=== PATIENT | female | born 1950 | race Caucasian/White ===

== ENCOUNTER → 2018-01-15 | Outpatient (CLI) | payer MEDICARE, OTHER | LOC: M.RAD 15:37 | DX: M79.671 Pain in right foot (principal) ==

== ENCOUNTER → 2019-01-21 | Outpatient (CLI) | payer MEDICARE, OTHER | LOC: M.RAD 14:02 | DX: M51.34 Other intervertebral disc degeneration, thoracic region (principal); M50.322 Other cervical disc degeneration at C5-C6 level; R07.9 Chest pain, unspecified ==

== ENCOUNTER → 2019-05-12 | Outpatient (CLI) | payer MEDICARE, OTHER | LOC: M.RAD 15:32 | DX: M79.671 Pain in right foot (principal) ==

== ENCOUNTER → 2019-09-01 | Outpatient (CLI) | payer MEDICARE, OTHER | LOC: M.RAD 15:02 | DX: M85.842 Other specified disorders of bone density and structure, left hand (principal); M85.88 Other specified disorders of bone density and structure, other site; W19.XXXA Unspecified fall, initial encounter ==

== ENCOUNTER 2020-04-21 21:42 | Inpatient (IN) | payer MEDICARE, OTHER ==
[~2020-04-21] VITALS: Ht 160 cm; Wt 61.9 kg
--- NOTE | ~2020-04-21 | OP ---
[address] [address] OPERATIVE REPORT Name: ANATOLY ALMODOVAR Room: [address] IN .R.#: [id number] Admission: 04/21/20 Attend Phys: Chrery Horvath MD Discharge: Date of : 52 Report #: [id number] THIS REPORT FOR: //name// cc: OSMAN - Kerrie family physician/PCP OSMAN - Kerrie family physician/PCP ~ CC: [facility] physician/PCP Cherry Horvath DICTATED BY: Bob Knight DO DATE OF SERVICE: 04/22/2020 PREOPERATIVE DIAGNOSIS: Left, closed, displaced intertrochanteric hip fracture. POSTOPERATIVE DIAGNOSIS: Left, closed, displaced intertrochanteric hip fracture. PROCEDURE PERFORMED: Surgical fixation of left hip fracture with cephalomedullary nail. SURGEON: Dr. Oswaldo Napoles. CARD FILER: Bob Knight DO and Veto Owens DO ORTHOPEDIC IMPLANTS: Tory cephalomedullary nail 10 x 170 mm with 125-degree neck angle and appropriately sized lag and distal interlock screws. ANESTHESIA: General. ESTIMATED BLOOD LOSS: 50 mL. DRAINS: None. SPECIMENS: None. COMPLICATIONS: None. CONDITION: The patient is stable. DISPOSITION: PACU and then to Med/Surg floor. ANTIBIOTICS: 2 grams Ancef IV piggyback prior to procedure. OPERATIVE FINDINGS: Intraoperative fluoroscopic images did demonstrate a left displaced intertrochanteric hip fracture, stable. [address] [place] [address] OPERATIVE REPORT Name: ANATOLY ALMODOVAR Room: [address] IN .R.#: [id number] Admission: 04/21/20 Attend Phys: Cherry Horvath MD Discharge: Date of : 52 Report #: [id number] INDICATIONS FOR PROCEDURE: The patient is a 69-year-old female who unfortunately sustained an injury to her left hip. She was admitted overnight for further orthopedic care. She was evaluated by primary medicine service as well as editor magazine this morning and was deemed to be cleared for surgery. Prior to the surgery discussed with the patient all risks, benefits, complications, indications of undergoing a left cephalomedullary nail surgery including the possible risks that include but are not limited to infection, wound healing complications, neurovascular injury, bleeding, need for repeat surgery, hardware failure, malunion, nonunion, DVT, PE, end-organ damage, complication of anesthesia and other possibilities. The patient demonstrated good understanding and wanted to proceed with surgery. DESCRIPTION OF PROCEDURE: I met with the patient in the preoperative suite and the left hip was marked. The patient was taken to the operating room and placed supine on the [place] fracture table. She was given general anesthetic. The left lower extremity was positioned in the boots draped in the standard fashion and the right lower extremity was positioned in a well leg mendoza. At this point, the left lower extremity was sterilely prepped and draped in standard fashion. A surgical timeout was completed, indicating the correct patient, operative site and procedure to be performed. All in the room were in agreement and would like to proceed. Utilizing intraoperative fluoroscopy the proximal incision was marked out based off the greater trochanter. Skin was incised with a 10 blade and dissection was carried down through the IT band down to the level of the greater trochanteric prominence. At this point, a guidewire was positioned using fluoroscopy and malleted into place and positioned down the shaft in standard fashion. Opening reamer was then utilized. Next, the 10 x 170 mm Tory nail was passed on the back table and loaded on the aiming arm and this was passed down the femur. Utilizing a double sleeve guide as well as intraoperative fluoroscopy to confirm lag screw placed. Skin was incised. A guide was placed down to bone and guidewire was placed. A 90-mm lag screw was then selected and reamed and then positioned in the standard fashion. Added some compression through the aiming arm across the fracture site and then the proximal setscrew was tightened into position. Next we turned our attention to the distal interlocked screw. The triple sleeve was utilized and the skin was incised and the triple sleeve was positioned to the lateral cortex of the femur. This was drilled and measured in the standard fashion. A 35 mm distal interlock screw was then placed in the standard fashion with a good stable bite. Next, the aiming arm was removed and final intraoperative fluoroscopic images were taken, these demonstrated adequate fixation and appropriate hardware alignment. The wound was thoroughly irrigated with saline. Closed deep fascia with an 0 Vicryl in a [id number] fashion and then 2-0 Monocryl was used subcuticularly and 2-0 Vicryl was used subcutaneously in a simple fashion. Skin was closed with skin bert. Dressings consisted of a Mepilex silver dressing. Needle and sponge counts correct x2 at the end [place] procedure. [place] [address] OPERATIVE REPORT Name: ANATOLY ALMODOVAR Room: [address] IN .R.#: [id number] Admission: 04/21/20 Attend Phys: Cherry Horvath MD Discharge: Date of : 52 Report #: [id number] taken out of anesthesia and placed supine back on her regular bed. The patient was transferred to PACU in stable condition. Dr. Oswaldo Napoles was present throughout the entirety of the case. By: 1208 [id number] Napoles, DO /nt
[2020-04-21 21:45] VITALS: BP 148/73
[2020-04-21] MEDS ORDERED: ELMIRON 100 MG100 M1 PO (21:49)
[2020-04-21] MEDS ORDERED: OXYBUTYNIN 5 MG5 M2 PO (21:50)
[2020-04-21] MEDS ORDERED: ZOLOFT100 MG PO (21:51)
[2020-04-21] MEDS ORDERED: ATARAX PO (21:51)
[2020-04-21] MEDS ORDERED: DESYREL150 MG PO (21:51)
[2020-04-21] MEDS ORDERED: WELLBUTRIN SR200 MG PO (21:52)
[2020-04-21 22:19] LABS: ABSOLUTE BASOPHILS 0.1 thou/uL (0.0-0.2); ABSOLUTE EOSINOPHILS 0.1 thou/uL (0.0-0.7); ABSOLUTE LYMPHOCYTES 1.6 thou/uL (0.8-5.3); ABSOLUTE MONOCYTES 0.9 thou/uL (0.0-1.2); BASOPHILS 0.9 %; EOSINOPHILS 1.1 %; HEMATOCRIT 32.8 % (37.0-47.0); HEMOGLOBIN 11.5 gm/dL (12.0-15.0); MCH 32.4 pg (26.0-34.0); MCHC 35.1 g/dL (28.0-37.0); MCV 92.4 fL (80.0-100.0); MONOCYTES 8.3 %; MPV 9.2 fl. (7.2-11.1); NUCLEATED RBCS 0 /100WBC; PLATELET COUNT* 269 thou/uL (150-400); POLYS 74.7 %; RBC 3.55 mil/uL (4.20-5.00); RDW-CV 13.5 % (10.5-14.5); WBC 10.6 thou/uL (4.0-11.0)
[2020-04-21 22:24] LABS: CALCIUM 8.4 mg/dL (8.5-10.1); CREATININE 1.2 mg/dL (0.6-1.3); POTASSIUM 3.9 mmol/L (3.5-5.1)
[2020-04-21 22:26] LABS: APTT 40.2 Seconds (25.0-31.3); PROTIME 10.7 Seconds (9.20-11.50)
[2020-04-21 22:29] LABS: ALBUMIN 3.2 g/dL (3.4-5.0); TOTAL BILIRUBIN 0.2 mg/dL (<0.1-1.0); TOTAL PROTEIN 6.9 g/dL (6.4-8.2)
[2020-04-22 00:24] VITALS: BP 130/59
[2020-04-22 00:48] VITALS: BP 142/59
[2020-04-22 08:15] VITALS: BP 120/56
--- NOTE | 2020-04-22 10:40 | EKG ---
[place] [address] ELECTROCARDIOGRAM REPORT Name: ANATOLY ALMODOVAR Room: [address] ADM IN .R.#: [id number] Admission: 04/21/20 Attend Phys: Cherry Horvaht, Discharge: Date of : 52 Date of Service: 04/21/20 2216 Report #: [id number] THIS REPORT FOR: //name// [facility] ED Test Date: 2020-04-21 Test Time: 22:16:33 Pat Name: ANATOLY ALMODOVAR Department: Room: [facility] Gender: F [employer] Secretary: PRO : 1950 Requested By: Liliam Howard Order Number: [id number] MD: Abdi Jack Measurements Intervals [place] Rate: 67 P: 85 MO: 168 QRS: 83 QRSD: 102 T: 66 QT: 425 QTc: 449 Interpretive Statements Sinus rhythm Atrial premature complex Borderline right axis deviation Minimal ST depression, anterolateral leads No previous ECG available for comparison Electronically Signed On 04-22-2020 10:39:52 CDT by Abdi Jack [email or web address] <ELECTRONICALLY SIGNED> By: Abdi Jack MD, [facility] 04/22/20 1039 2216 Abdi Jack MD, [facility] /EPI
--- NOTE | 2020-04-22 10:48 | EKG ---
[place] [address] ELECTROCARDIOGRAM REPORT Name: ANATOLY ALMODOVAR Room: [address] ADM IN M.R.#: [id number] Admission: 04/21/20 Attend Phys: Cherry Horvath, Discharge: Date of : 52 Date of Service: 04/22/20 1012 Report #: [id number] THIS REPORT FOR: //name// [facility] Test Date: 2020-04-22 Test Time: 10:12:47 Pat Name: ANATOLY ALMODOVAR Department: Room: [address] Gender: F Joint Cutter: NEMESIO : 1950 Requested By: Campbell Ramos Order Number: [id number] Bonita MD: Abdi Jack Measurements Intervals [place] Rate: 71 P: 77 MO: 157 QRS: 77 QRSD: 92 T: 3 QT: 438 QTc: 476 Interpretive Statements Sinus rhythm Atrial premature complex Minimal ST depression, inferior leads Compared to ECG 04/21/2020 22:16:33 No significant changes Electronically Signed On 04-22-2020 10:48:05 CDT by Abdi Jack [email or web address] <ELECTRONICALLY SIGNED> By: Abdi Jack MD, [facility] 04/22/20 1048 1012 1012 Abdi Jack MD, [facility] /EPI
--- NOTE | 2020-04-22 13:45 | 2DMMODE ---
[place] [address] 2 D/M-MODE ECHOCARDIOGRAM Name: ANATOLY ALMODOVAR Room: [address] IN [facility]#: [id number] Admission: 04/21/20 Attend Phys: Cherry Horvath, Discharge: Date of : 52 Date of Service: 04/22/20 1345 Report #: [id number] THIS REPORT FOR: cc: FAM - No family physician/PCP FAM - No family physician/PCP Chris Finch MD [facility] ~ APPROVED REPORT Study performed: 04/22/2020 09:10:13 EXAM: Comprehensive 2D, Doppler, and color-flow Echocardiogram Patient Location: In-Patient Room #: [facility] Status: routine BSA: 1.64 HR: 72 bpm BP: 142/59 mmHg Rhythm: NSR Other Information Study Quality: Good Indications Abnormal ECG Pre-Op 2D Dimensions IVSd: 6.83 (7-11mm) LVOT Diam: 19.78 (18-24mm) LVDd: 52.23 mm PWd: 7.54 (7-11mm) Ascending Ao: 31.52 (22-36mm) LVDs: 28.95 (25-40mm) Aortic Root: 31.10 mm Volumes Left Atrial Volume (Systole) LA ESV Index: 21.50 mL/m2 Aortic Valve AoV Peak Viraj.: 1.88 m/s AO Peak Gr.: 14.17 mmHg LVOT Max P.99 mmHg AO Mean Gr.: 6.79 mmHg LVOT Mean P.92 mmHg LVOT Max V: 1.87 m/s AO V2 VTI: 36.51 cm LVOT Mean V: 1.09 m/s LORENE (VTI): 3.21 cm2 LVOT V1 VTI: 38.16 [place] [address] 2 D/M-MODE ECHOCARDIOGRAM Name: ANATOLY ALMODOVAR Room: [address] IN .R.#: [id number] Admission: 04/21/20 Attend Phys: Cherry Horvath, Discharge: Date of : 52 Date of Service: 04/22/20 1345 Report #: [id number] AI [place]: 2.65 m/s2 AI PHT: 423.26 ms Mitral Valve E/A Ratio: 0.95 MV Decel. Time: 225.84 ms MV E Max Viraj.: 0.72 m/s MV PHT: 65.49 ms MVA (PHT): 3.36 cm2 TDI E/Lateral E': 4.80 E/Medial E': 4.80 Medial E' Viraj.: 0.15 m/s Lateral E' Viraj.: 0.15 m/s Pulmonary Valve PV Peak Viraj.: 0.99 m/s PV Peak Gr.: 3.94 mmHg Tricuspid Valve RAP Estimate: 5.00 mmHg TR Peak Gr.: 24.87 mmHg RVSP: 29.00 mmHg PA Pressure: 29.00 mmHg Left Ventricle The left ventricle is normal size. There is normal LV segmental wall motion. There is normal left ventricular wall thickness. Left ventricular systolic function is normal. LVEF is 60-65%. The left ventricular diastolic function is normal. Right Ventricle The right ventricle is normal size. The right ventricular systolic function is normal. Atria The left atrium size is normal. The right atrium size is normal. Aortic Valve The aortic valve is normal in structure. Mild to moderate aortic regurgitation. There is no aortic valvular stenosis. Mitral Valve The mitral valve is normal in structure. There is no mitral valve regurgitation noted. No evidence of mitral valve stenosis[place] [address] 2 D/M-MODE ECHOCARDIOGRAM Name: ANATOLY ALMODOVAR Room: [address]#: [id number] Admission: 04/21/20 Attend Phys: Cherry Horvath, Discharge: Date of : 52 Date of Service: 04/22/20 1345 Report #: [id number] The tricuspid valve is normal in structure. Trace tricuspid regurgitation. No pulmonary hypertension. Pulmonic Valve The pulmonary valve is normal in structure. There is no pulmonic valvular regurgitation. Great Vessels The aortic root is normal in size. IVC is normal in size and collapses >50% with inspiration. Pericardium There is no pericardial effusion. <Conclusion> The left ventricle is normal size. There is normal left ventricular wall thickness. Left ventricular systolic function is normal. LVEF is 60-65%. The left ventricular diastolic function is normal. Mild to moderate aortic regurgitation. Trace tricuspid regurgitation. No pulmonary hypertension. IVC is normal in size and collapses >50% with inspiration. <ELECTRONICALLY SIGNED> By: Chris Finch MD, FACC 04/22/20 1345 1345 1345 Chris Finch MD, FACC /INF
--- NOTE | 2020-04-22 14:31 | CON ---
[address] [address] CONSULTATION Name: NISHIANATOLY Lars Room: [address] IN .R.#: [id number] Admission: 04/21/20 Attend Phys: Cherry Horvath MD Discharge: Date of : 52 Report #: [id number] THIS REPORT FOR: //name// cc: OSMAN Sy family physician/PCP OSMAN Sy family physician/PCP ~ THIS REPORT FOR: //name// CC: [facility] physician/PCP Cherry Horvath DATE OF SERVICE: 04/22/2020 INDICATION: Preoperative evaluation. HISTORY OF PRESENT ILLNESS: The patient is a 69-year-old white female who was admitted to the hospital with left hip fracture. A 12-lead EKG showed sinus rhythm with some nonspecific ST segment depression in the anterolateral leads. The patient denies any prior cardiac history. She has not had formal cardiac evaluation. She denies specifically chest pain or shortness of breath. Cardiac risk factors include family history of coronary artery disease, hyperlipidemia, and tobacco use. She does have evidence of atherosclerosis based on the findings of atherosclerosis in the aorta on various CT scans dating back at least 5 years. Evaluation of her various lipid profile shows her to have an elevated LDL cholesterol consistent with hyperlipidemia. PAST MEDICAL HISTORY: 1. Iron-deficiency anemia. 2. Chronic cystitis. 3. Osteopenia. 4. Depression and anxiety. 5. Hypothyroidism. 6. Hysterectomy in 1985. 7. Bladder sling. 8. Lumbar spine surgery. 9. Right knee surgery. CURRENT MEDICATIONS: Elmiron 100 mg b.i.d., oxybutynin 15 mg daily, Zoloft 100 mg b.i.d., trazodone 100 mg at bedtime, buspirone 15 mg q.i.d., and Atarax 10 mg daily. ALLERGIES: LEVOFLOXACIN, SULFAMETHOXAZOLE AND TETANUS TOXOID. SOCIAL HISTORY: The patient reports smoking 3 cigarettes daily. She [place] [address] CONSULTATION Name: ANATOLY ALMODOVAR Lars Room: [address] IN [facility].#: [id number] Admission: 04/21/20 Attend Phys: Cherry Horvath MD Discharge: Date of : 52 Report #: [id number] REVIEW OF SYSTEMS: Fairly unremarkable. The patient has been given morphine for pain control and has a somewhat difficult history at this time. PHYSICAL EXAMINATION: VITAL SIGNS: Blood pressure 142/59, pulse is 74 and regular. GENERAL: This is a pleasant lady in no distress. Mood and affect somewhat blunted with medication, but appears stable. HEENT: Head is normocephalic, atraumatic. Extraocular muscles intact. Mucous membranes are moist. NECK: Shows no jugular venous distention. There are no carotid bruits. CHEST: Reveals clear lung elizalde without wheezes or rales. CARDIOVASCULAR: Reveals a regular rhythm. I do not appreciate gallop or murmur. ABDOMEN: Reveals a soft abdomen with positive bowel sounds. EXTREMITIES: Shows no edema. Peripheral pulses palpable. SKIN: Warm and dry. LABORATORY DATA: A 12-lead EKG shows sinus rhythm with nonspecific ST-segment depression in the anterolateral leads. There are no pathologic Q-waves. Labs are reviewed. Electrolytes within normal limits. BUN 17 and creatinine 1.2. Hemoglobin 11.5 and platelet count 269,000. Troponin is less than 0.06. Bedside echo shows normal LV function without wall motion abnormality. IMPRESSION AND RECOMMENDATIONS: 1. Left hip fracture. The patient is not at prohibitive risk from a cardiac standpoint to proceed with left hip repair. 2. Atherosclerosis based on review of history. The patient should have formal cardiac evaluation in the near future. We would consider outpatient stress testing. 3. Dyslipidemia. Recommend statin agent for LDL cholesterol of 70 or less. 4. Tobacco use. Smoking cessation should be advised. <ELECTRONICALLY SIGNED> By: Chris Finch MD, FACC 04/22/20 1431 0935 0948Chris Finch MD, FACC /nt
[2020-04-22 16:07] VITALS: BP 130/58
[2020-04-22 20:30] VITALS: BP 116/54
[2020-04-23] VITALS: BP 157/53
[2020-04-23 03:20] VITALS: BP 116/59
[2020-04-23 05:23] LABS: ABSOLUTE LYMPHOCYTES 1.6 thou/uL (0.8-5.3); ABSOLUTE NEUTROPHILS 5.1 thou/uL (1.6-8.1); BASOPHILS 0.6 %; EOSINOPHILS 0.1 %; HEMATOCRIT 26.3 % (37.0-47.0); MCH 32.5 pg (26.0-34.0); MCHC 34.6 g/dL (28.0-37.0); MCV 93.8 fL (80.0-100.0); MONOCYTES 13.4 %; MPV 9.9 fl. (7.2-11.1); NUCLEATED RBCS 0 /100WBC; PLATELET COUNT* 196 thou/uL (150-400); POLYS 65.9 %; RDW-CV 13.2 % (10.5-14.5); WBC 7.8 thou/uL (4.0-11.0)
[2020-04-23 05:32] LABS: HEMOGLOBIN 9.1 gm/dL (12.0-15.0)
[2020-04-23 05:33] LABS: ANION GAP 8 mmol/L (7-16); BUN 10 mg/dL (7-18); CALCIUM 7.8 mg/dL (8.5-10.1); CHLORIDE 102 mmol/L (98-107); CO2 27 mmol/L (21-32); GLUCOSE 93 mg/dL (70-99); POTASSIUM 3.5 mmol/L (3.5-5.1); SODIUM 137 mmol/L (136-145)
[2020-04-23 08:10] VITALS: BP 121/50
[2020-04-23 08:39] LABS: CHOLESTEROL 182 mg/dL (<200); HDL CHOLESTEROL 67 mg/dL (>40); LDL CHOLESTEROL 92 mg/dL (<100); TC:HDL 2.7 Ratio (Not establshd); TRIGLYCERIDE 119 mg/dL (<150); VLDL 24 mg/dL (<40)
[2020-04-23 08:41] LABS: SERUM ASSESSMENT Clear
[2020-04-23 16:09] VITALS: BP 124/53
[2020-04-23 20:00] VITALS: BP 141/55
[2020-04-24 08:00] VITALS: BP 136/56
[2020-04-24] MEDS ORDERED: FLEXERIL PO (12:35)
[2020-04-24 17:00] VITALS: BP 154/51
[2020-04-24 19:40] VITALS: BP 140/62
[2020-04-24] MEDS ORDERED: PREMARIN1.25 MG PO (20:59)
[2020-04-24] MEDS ORDERED: LEVO-T75 MCG PO (21:11)
[2020-04-24] MEDS ORDERED: BUSPAR30 MG PO (21:11)
[2020-04-24] MEDS ORDERED: ROBAXIN 750 MG750 MG PO (21:12)
[2020-04-25 00:42] VITALS: BP 134/46
[2020-04-25 06:19] VITALS: BP 122/71
[2020-04-25 07:55] VITALS: BP 119/83
[2020-04-25 15:10] VITALS: BP 144/53
[2020-04-25 20:05] VITALS: BP 157/62
[2020-04-26 08:10] VITALS: BP 142/80
[2020-04-26] MEDS ORDERED: OXYCODONE HCL 55 MG PO (08:20)
[2020-04-26] MEDS ORDERED: ELIQUIS5 MG PO (08:20)
[2020-04-26 12:30] VITALS: BP 171/60
== END 2020-04-26 13:38 | DRG 481 ==
LOC: M.ERS 21:42 → M.ORTHSURG 23:13 → M.TBA-ER 23:13 → M.ORTHSURG 04-22 00:28
PROVIDERS: Personal Emergency Response Attendant; ADMIT Internal Medicine; ATTEND Internal Medicine
PROC: 0QS706Z Reposition Left Upper Femur with Intramedullary Internal Fixation Device, Open Approach (ICD-10-PCS; principal; 2020-04-22)
PROC: 5A09357 Assistance with Respiratory Ventilation, Less than 24 Consecutive Hours, Continuous Positive Airway Pressure (ICD-10-PCS; principal; 2020-04-22)
DX: M80.052A Age-related osteoporosis with current pathological fracture, left femur, initial encounter for fracture (principal); E44.1 Mild protein-calorie malnutrition; F41.9 Anxiety disorder, unspecified; F32.9 Major depressive disorder, single episode, unspecified; E03.9 Hypothyroidism, unspecified; F17.210 Nicotine dependence, cigarettes, uncomplicated; E78.5 Hyperlipidemia, unspecified; R94.31 Abnormal electrocardiogram [ECG] [EKG]; G47.33 Obstructive sleep apnea (adult) (pediatric); G89.29 Other chronic pain; M54.9 Dorsalgia, unspecified; W10.8XXA Fall (on) (from) other stairs and steps, initial encounter; Z20.828 Contact with and (suspected) exposure to other viral communicable diseases; Y93.89 Activity, other specified; Y92.89 Other specified places as the place of occurrence of the external cause; Y99.8 Other external cause status; Z90.710 Acquired absence of both cervix and uterus; Z79.899 Other long term (current) drug therapy; Z88.1 Allergy status to other antibiotic agents; Z88.7 Allergy status to serum and vaccine; Z88.8 Allergy status to other drugs, medicaments and biological substances; Z68.24 Body mass index [BMI] 24.0-24.9, adult

== ENCOUNTER 2020-04-26 12:15 | Inpatient (IN) | payer MEDICARE, OTHER ==
[~2020-04-26] VITALS: Ht 160 cm; Wt 60.4 kg
[~2020-04-26 12:15] MED LIST: ATARAX PO; BUSPAR30 MG PO; DESYREL150 MG PO; ELIQUIS5 MG PO; ELMIRON 100 MG100 M1 PO; FLEXERIL PO; LEVO-T75 MCG PO; OXYBUTYNIN 5 MG5 M2 PO; OXYCODONE HCL 55 MG PO; PREMARIN1.25 MG PO; ROBAXIN 750 MG750 MG PO; WELLBUTRIN SR200 MG PO; ZOLOFT100 MG PO
[2020-04-26 14:00] VITALS: BP 151/54
[2020-04-26 19:30] VITALS: BP 133/63
[2020-04-27 05:58] LABS: HEMATOCRIT 26.6 % (37.0-47.0); HEMOGLOBIN 9.2 gm/dL (12.0-15.0); MCH 32.5 pg (26.0-34.0); MCHC 34.5 g/dL (28.0-37.0); MCV 94.3 fL (80.0-100.0); MPV 9.2 fl. (7.2-11.1); RBC 2.82 mil/uL (4.20-5.00); RDW-CV 13.5 % (10.5-14.5); WBC 6.7 thou/uL (4.0-11.0)
[2020-04-27 06:02] LABS: CALCIUM 8.6 mg/dL (8.5-10.1); CREATININE 0.9 mg/dL (0.6-1.3)
[2020-04-27 08:00] VITALS: BP 125/65
[2020-04-27 19:00] VITALS: BP 159/66
[2020-04-28 07:00] VITALS: BP 119/58
[2020-04-28 19:00] VITALS: BP 153/50
[2020-04-29 07:52] VITALS: BP 131/50
[2020-04-29 20:22] VITALS: BP 146/59
[2020-04-30 08:00] VITALS: BP 137/54
[2020-04-30 20:18] VITALS: BP 133/65
[2020-05-01 08:00] VITALS: BP 136/62
[2020-05-01 20:18] VITALS: BP 163/68
[2020-05-02 08:00] VITALS: BP 137/53
[2020-05-02 19:50] VITALS: BP 189/80
[2020-05-03 07:00] VITALS: BP 140/70
[2020-05-03 19:00] VITALS: BP 156/67
[2020-05-04 09:00] VITALS: BP 126/57
[2020-05-04 19:00] VITALS: BP 143/83
[2020-05-05 07:00] VITALS: BP 116/57
[2020-05-05 20:21] VITALS: BP 145/80
[2020-05-06 08:17] VITALS: BP 139/58
[2020-05-07 08:00] VITALS: BP 122/54
[2020-05-07 20:00] VITALS: BP 138/70
[2020-05-08 07:30] VITALS: BP 126/55
[2020-05-08 19:00] VITALS: BP 169/72
[2020-05-09 08:00] VITALS: BP 144/63
[2020-05-09 19:32] VITALS: BP 141/63
[2020-05-10 07:00] VITALS: BP 136/55
[2020-05-10 11:52] VITALS: BP 136/55
[2020-05-10 13:06] VITALS: BP 136/55
[2020-05-10] MEDS ORDERED: ASA81BEC PO (13:26)
[2020-05-10 14:45] VITALS: BP 136/55
== END 2020-05-10 14:45 | disposition home health service (06) | DRG 536 ==
LOC: M.REH 12:15
PROVIDERS: ADMIT Physical Medicine & Rehabilitation; ATTEND Physical Medicine & Rehabilitation
DX: S72.142A Displaced intertrochanteric fracture of left femur, initial encounter for closed fracture (principal); E44.1 Mild protein-calorie malnutrition; F32.9 Major depressive disorder, single episode, unspecified; F41.9 Anxiety disorder, unspecified; E03.9 Hypothyroidism, unspecified; D64.9 Anemia, unspecified; F17.210 Nicotine dependence, cigarettes, uncomplicated; G47.33 Obstructive sleep apnea (adult) (pediatric); K59.00 Constipation, unspecified; Z90.710 Acquired absence of both cervix and uterus; Z88.1 Allergy status to other antibiotic agents; Z88.2 Allergy status to sulfonamides; Z68.23 Body mass index [BMI] 23.0-23.9, adult

== ENCOUNTER → 2020-06-28 | Outpatient (CLI) | payer MEDICARE, OTHER ==
[~2020-06-28] MED LIST changes: +ASA81BEC PO
--- NOTE | 2020-06-28 14:53 | 2DMMODE ---
[place] [address] 2 D/M-MODE ECHOCARDIOGRAM Name: ANATOLY ALMODOVAR Lars Room: [facility]#: [id number] Admission: 06/28/20 Attend Phys: Chris Finch, Discharge: Date of : 52 Date of Service: 06/28/20 1452 Report #: [id number] THIS REPORT FOR: cc: Everardo Geronimo Meng, Zhao Blick, David R. MD [facility] ~ APPROVED REPORT Study performed: 06/28/2020 13:00:49 EXAM: Comprehensive 2D, Doppler, and color-flow Echocardiogram Patient Location: Out-Patient BSA: 1.62 HR: 66 bpm BP: 142/59 mmHg Other Information Study Quality: Good Indications Aortic Valve Disease 2D Dimensions IVSd: 10.27 (7-11mm) LVOT Diam: 20.43 (18-24mm) LVDd: 48.65 mm PWd: 10.77 (7-11mm) Ascending Ao: 31.11 (22-36mm) LVDs: 26.58 (25-40mm) Aortic Root: 31.45 mm Volumes Left Atrial Volume (Systole) LA ESV Index: 20.10 mL/m2 Aortic Valve AoV Peak Viraj.: 1.38 m/s AO Peak Gr.: 7.56 mmHg LVOT Max P.63 mmHg AO Mean Gr.: 3.51 mmHg LVOT Mean P.20 mmHg LVOT Max V: 1.38 m/s AO V2 VTI: 30.13 cm LVOT Mean V: 0.80 m/s LORENE (VTI): 3.50 cm2 LVOT V1 VTI: 32.18 cm AI [place]: 2.71 m/s2 AI PHT: 400.35 [place] [address] 2 D/M-MODE ECHOCARDIOGRAM Name: ANATOLY ALMODOVAR Room: [facility]#: [id number] Admission: 06/28/20 Attend Phys: Chris Finch, Discharge: Date of : 52 Date of Service: 06/28/20 1452 Report #: [id number] Mitral Valve E/A Ratio: 1.03 MV Decel. Time: 169.90 ms MV E Max Viraj.: 0.59 m/s MV PHT: 49.27 ms MVA (PHT): 4.47 cm2 TDI E/Lateral E': 5.36 E/Medial E': 5.90 Medial E' Viraj.: 0.10 m/s Lateral E' Viraj.: 0.11 m/s Pulmonary Valve PV Peak Viraj.: 0.86 m/s PV Peak Gr.: 2.99 mmHg Tricuspid Valve RAP Estimate: 5.00 mmHg TR Peak Gr.: 14.17 mmHg RVSP: 19.17 mmHg PA Pressure: 19.17 mmHg Left Ventricle The left ventricle is normal size. There is normal LV segmental wall motion. There is normal left ventricular wall thickness. Left ventricular systolic function is normal. The left ventricular ejection fraction is within the normal range. LVEF is 55-60%. The left ventricular diastolic function is normal. Right Ventricle The right ventricle is normal size. The right ventricular systolic function is normal. Atria The left atrium size is normal. The right atrium size is normal. Aortic Valve The aortic valve is normal in structure. Moderate aortic regurgitation. There is no aortic valvular stenosis. Mitral Valve The mitral valve is normal in structure. There is no mitral valve regurgitation noted. No evidence of mitral valve stenosis. Tricuspid Valve The tricuspid valve is normal in structure. Mild [place]icus[place] [address] 2 D/M-MODE ECHOCARDIOGRAM Name: ANATOLY ALMODOVAR Room: [facility]#: [id number] Admission: 06/28/20 Attend Phys: Chris Finch, Discharge: Date of : 52 Date of Service: 06/28/20 1452 Report #: [id number] Pulmonic Valve The pulmonary valve is normal in structure. There is no pulmonic valvular regurgitation. Great Vessels The aortic root is normal in size. IVC is normal in size and collapses >50% with inspiration. Pericardium There is no pericardial effusion. <Conclusion> LVEF is 55-60%. The aortic valve is normal in structure. Moderate aortic regurgitation. <ELECTRONICALLY SIGNED> By: Abdi Jack MD, FACC 06/28/201451 51 51 Abdi Jack MD, FACC /INF
--- NOTE | 2020-06-29 10:09 | CARDNUC ---
[place] [address] CARDIAC NUCLEAR IMAGING REPORT Name: ANATOLY ALMODOVAR Room: [facility]#: [id number] Admission: 06/28/20 Attend Phys: Chris Finch, Discharge: Date of : 52 Date of Service: 06/29/20 1008 Report #: [id number] THIS REPORT FOR: cc: Everardo Geronimo Meng, Zhao Liston, Michael J. MD [facility] ~ APPROVED REPORT Study performed: 06/28/2020 15:57:50 Exam: Nuclear Stress Test Indication: Abnormal EKG, Nonrheumatic Aortic Valve insufficiency. Patient Location: Out-Patient Stress Tech: Diya Whitmore Stress Nurse: Angelic Fraser R.N. Ht: 5 ft 3 in Wt: 131 lbs BSA: 1.62 m2 BMI: 23.20 Medical History Medical History: ABN EKG, Nonrheumatic Aortic Valve Insufficiency, Recent fall, recent hip surgery, back surgery, CAD, past smoker, uses walker to ambulate. Medications: No cardiac medications. Allergies: Bactrim, Levofloxacin, Tetanus toxoids. Cardiac Risk Factors: Age, FHX of CAD, Hyperlipidemia, ABN EKG, Nonrheumatic Aortic Valve insufficiency, past smoker. Previous Cardiac Procedures: None Pretest Chest Pain Characteristics: No chest pain Exercise History: Sedentary Physical Disabilities: s/p hip FX/Surgery, uses walker to ambulate. Meds Held (24 hrs): None Stress Test Details Stress Test: Pharmacologic stress testing performed using 0.4 mg of regadenoson per 5 mL given IV over 10 seconds. Reason for pharmacologic stress test: s/p hip FX/Surgery, uses walker to ambulate.. HR Resting HR: 60 bpm Max Heart Rate (APMHR): 151 bpm Max HR Achieved: 88 bpm Target HR (85% APMHR): 128 bpm % of APMHR: 58 [place] [address] CARDIAC NUCLEAR IMAGING REPORT Name: HONORIOLISAANATOLY L Room: [facility]#: [id number] Admission: 06/28/20 Attend Phys: Chris Finch, Discharge: Date of : 52 Date of Service: 06/29/20 1008 Report #: [id number] Recovery HR: 76 bpm BP Resting BP: 183/74 mmHg Max BP: 172/74 mmHg ECG Resting ECG: Sinus Rhythm, nonspecific ST-T abnormalities Stress ECG: Sinus Rhythm, nonspecific ST-T abnormalities ST Change: None Arrhythmia: None Recovery ECG: Sinus Rhythm, nonspecific ST-T abnormalities Recovery ST Change: None Recovery Arrhythmia: None Clinical Reason for Termination: Completed protocol Stress Symptoms: PAC's, Chest tightness 4/10, stomach discomfort/nausea. Exercise duration: 00 min 00 sec Exercise capacity: 1.00 METs The patient reported chest tightness with Lexiscan infusion. Nurse Comments A 70 year old female presented with her walker for a sitting Lexiscan r/t ABN EKG, Nonrheumatic Aortic Valve insufficiency. Test well tolerated. Recovery unremarkable. Patient was stable and stated she felt good when escorted to Nuclear Medicine for imaging. Stress ECG Conclusion Baseline twelve-lead EKG shows sinus rhythm with 0.[address] segment depression in the inferolateral leads. EKGs obtained during and post Lexiscan infusion showed sinus rhythm with no significant ST segment changes when compared to baseline. There were no stress-induced arrhythmias. NM EXAM: Myocardial Perfusion REST/STRESS Imaging Protocol: Rest Tc-99m/Stress Tc-99m 1 day Resting Data Rest SPECT myocardial perfusion imaging was performed in supine position 30 minutes following the intravenous injection of 11.4 mCi of Tc-99m Sestamibi. Time of rest injection: 14:15 [place] [address] CARDIAC NUCLEAR IMAGING REPORT Name: ANATOLY ALMODOVAR Room: [facility]#: [id number] Admission: 06/28/20 Attend Phys: Chris Finch, Discharge: Date of : 52 Date of Service: 06/29/20 1008 Report #: [id number] The images were gated to evaluate regional wall motion and calculate left ventricular ejection fraction. Administration Route: IV Administration Site: Right Wrist Pharmacologic Stress Pharmacologic stress test was performed by injecting Regadenoson 0.4 mg IV push followed by the intravenous injection of 32.4 mCi of Tc-99m Sestamibi. Time of stress injection: 15:50 Administration Route: IV Administration Site: Right Wrist Heart Rate at time of stress injection: 88 bpm. Gated Stress SPECT was performed 40 minutes after stress injection. The images were gated to evaluate regional wall motion and calculate left ventricular ejection fraction. Prone imaging was performed. Study Quality Study: Good Artifact: Mild Breast artifact Study Data At rest, the left ventricular ejection fraction was 70%.. Post stress, the left ventricular ejection was 71%.. TID = 1.16. Perfusion Perfusion images obtained in the supine position at rest and post Lexiscan stress show a small region of moderate photopenia involving the distal anterior wall and apex that resolves with post stress prone imaging consistent with breast attenuation artifact. No other fixed or reversible defects were identified. Wall Motion Normal left ventricular wall motion. Nuclear Conclusion ECG Findings: non-diagnostic Clinical Findings: equivocal Nuclear Findings: negative for ischemia Exercise Capacity: not assessed Left Ventricular Function: normal Risk Study: low Perfusion study show no defect to suggest stress[place] [address] CARDIAC NUCLEAR IMAGING REPORT Name: NISHIBARANATOLY L Room: [facility]#: [id number] Admission: 06/28/20 Attend Phys: Chris Finch, Discharge: Date of : 52 Date of Service: 06/29/20 1008 Report #: [id number] Left ventricular systolic function appears normal on gated studies. This is a low risk study. <Conclusion> Baseline twelve-lead EKG shows sinus rhythm with 0.[address] segment depression in the inferolateral leads. EKGs obtained during and post Lexiscan infusion showed sinus rhythm with no significant ST segment changes when compared to baseline. There were no stress-induced arrhythmias. <ELECTRONICALLY SIGNED> By: Chris Finch MD, FACC 06/29/208 07 07 Chris Finch MD, FACC /INF
== END ==
LOC: M.CRD 05-27 11:26 → M.NUC 06-16 10:00 → M.CRD 06-16 11:00 → M.NUC 06-22 08:00 → M.CRD 06-22 08:00 → M.NUC 14:00
PROVIDERS: ATTEND Internal Medicine Cardiovascular Disease
DX: I08.8 Other rheumatic multiple valve diseases (principal); R94.31 Abnormal electrocardiogram [ECG] [EKG]

== ENCOUNTER → 2020-10-20 | Outpatient (CLI) | payer MEDICARE, OTHER | LOC: M.RAD 10-12 15:56 | PROVIDERS: ATTEND Internal Medicine | DX: Z12.31 Encounter for screening mammogram for malignant neoplasm of breast (principal); M85.88 Other specified disorders of bone density and structure, other site ==

== ENCOUNTER 2021-06-01 16:57 | Emergency (ER) | payer MEDICARE ==
[~2021-06-01] VITALS: Ht 160 cm; Wt 60.8 kg
[2021-06-01 17:59] VITALS: BP 154/65
== END 2021-06-01 18:00 | disposition home or self-care (01) ==
LOC: M.ERS 16:57
DX: S60.212A Contusion of left wrist, initial encounter (principal); S80.01XA Contusion of right knee, initial encounter; F32.9 Major depressive disorder, single episode, unspecified; F41.9 Anxiety disorder, unspecified; E03.9 Hypothyroidism, unspecified; Z90.710 Acquired absence of both cervix and uterus; Z79.82 Long term (current) use of aspirin; Z79.899 Other long term (current) drug therapy; Z88.2 Allergy status to sulfonamides; Z88.1 Allergy status to other antibiotic agents; W01.0XXA Fall on same level from slipping, tripping and stumbling without subsequent striking against object, initial encounter; Y93.89 Activity, other specified; Y92.89 Other specified places as the place of occurrence of the external cause; Y99.8 Other external cause status